=== PATIENT | female | born 1990 | race Caucasian/White ===

== ENCOUNTER 2017-07-14 16:38 | Emergency (ER) | payer OTHER, MEDICAID ==
[~2017-07-14] VITALS: Ht 157.5 cm; Wt 53.5 kg
[2017-07-14] MEDS ORDERED: UNICOMPLEX M TA1 TA1 PO (16:44)
[2017-07-14] MEDS ORDERED: AMOXICILLIN 50500 MG PO (16:52)
[2017-07-14 17:10] VITALS: BP 126/87
== END 2017-07-14 17:10 | disposition home or self-care (01) ==
LOC: M.ERS 16:38
DX: H65.191 Other acute nonsuppurative otitis media, right ear (principal)

== ENCOUNTER 2018-02-25 03:36 | Emergency (ER) | payer OTHER, MEDICAID ==
[~2018-02-25] VITALS: Ht 157.5 cm; Wt 54.4 kg
[~2018-02-25 03:36] MED LIST: AMOXICILLIN 50500 MG PO; UNICOMPLEX M TA1 TA1 PO
[2018-02-25] MEDS ORDERED: IBUPROFEN 800800 MG PO (04:13)
[2018-02-25] MEDS ORDERED: NORCO 5-325 TA1 EACH PO (04:13)
[2018-02-25] MEDS ORDERED: AMOXICILLIN875 MG PO (04:13)
[2018-02-25 04:25] VITALS: BP 144/62
== END 2018-02-25 04:25 | disposition home or self-care (01) ==
LOC: M.ERS 03:36
DX: H66.92 Otitis media, unspecified, left ear (principal); J32.9 Chronic sinusitis, unspecified; Z98.890 Other specified postprocedural states